=== PATIENT | male | born 1975 | race Caucasian/White ===

== ENCOUNTER 2016-11-28 13:35 | Emergency (ER) | payer MEDICARE ==
[~2016-11-28] VITALS: Ht 182.9 cm; Wt 86.0 kg
[~2016-11-28 13:35] MED LIST: CIPR-9 PO
[2016-11-28 13:37] VITALS: BP 120/76; PULSE 89; RESP 16; TEMP 98.4; O2SAT 98
--- NOTE | 2016-11-28 13:41 | PD ---
Physical Exam Time Seen by Provider: 13:39 Narrative 49-year-old male with complaint of front upper tooth pain 5 days. Took an old prescription of Bactrim for 2 days, 3 times a day, with no change in symptoms. Denies fever, vomiting. Patient seen in triage. Vital signs reviewed. Patient taken to medical bed. Data Data Last Documented VS Vital Signs Date Time Temp Pulse Resp B/P (MAP) Pulse Ox O2 Delivery O2 Flow Rate FiO2 11/28/16 13:37 98.4 89 16 120/76 (91) 98 MDM Supervised Visit with KLARISSA: Malathi Rodriguez Nov 28, 2016 13:41
[2016-11-28] MEDS ORDERED: CLIN150 PO (14:29)
--- NOTE | 2016-11-28 14:36 | PD ---
HPI Chief Complaint: ENT Complaint Time Seen by Provider: 14:26 Travel History International Travel<30 days: No Contact w/Intl Traveler<30days: No Traveled to known affect area: No History of Present Illness HPI 41-year-old male resents emergency department with ongoing and worsening dental pain and swelling to the anterior upper teeth including #7 #8, #9, #10 and #11 teeth. These are have been bothersome for the past week. Patient tried taking some Bactrim that he had left over from a previous prescription without improvement. He is not really requesting for pain just something different for the infection. He states the pain is about a 2 out of 10. He states penicillin bothers his stomach. He has history of MRSA, as well as multiple allergies including fish containing products, BUN on, haloperidol, iodine, sodium iodide, and penicillin is listed but he states it just upsets his stomach. PFSH Past Medical History Arthritis: Yes Blood Disorders: No Bipolar Disorder: Yes Anxiety: Yes Depression: Yes Cancer: No Cardiovascular Problems: No Diabetes: No Diminished Hearing: No Diverticulitis: Yes Endocrine: No Gastrointestinal Disorders: Yes Genitourinary: No Headaches: Yes Immune Disorder: No Musculoskeletal: No Neurologic: Yes Psychiatric: Yes Reproductive: No Respiratory: No Immunizations Current: Yes Schizophrenia: Yes Seizures: Yes (WHEN I WAS A CHILD) Thyroid Disease: No ?: Not Past Surgical History Abdominal Surgery: No Ear Surgery: No Endocrine Surgery: No Eye Surgery: No Genitourinary Surgery: No Gynecologic Surgery: No Oral Surgery: No Pacemaker: No Thoracic Surgery: No Other Surgery: No Family History Family Myocardial Infarction: Yes (PATERNAL & MATERNAL GRANDFATHERS) Social History Alcohol Use: No Tobacco Use: Yes (1 PPD) Substance Use: Yes Allergies-Medications (Allergen,Severity, Reaction): Coded Allergies: Fish Containing Products (Unverified Allergy, Severe, 10/17/16) haloperidol (Unverified Allergy, Severe, SOB, 10/17/16) iodine (Unverified Allergy, Severe, SOB, 10/17/16) penicillin G (Unverified Allergy, Severe, RAISED RASH, 10/17/16) potassium iodide (Unverified Allergy, Severe, SOB, 10/17/16) povidone-iodine (Unverified Allergy, Severe, SOB, 10/17/16) sodium iodide (Unverified Allergy, Severe, SOB, 10/17/16) sodium iodide (Unverified Allergy, Severe, SOB, 10/17/16) bee venom protein (honey bee) (Verified Allergy, Unknown, 11/28/16) *MDRO Multi-Drug Resistant Organism (Verified Adverse Reaction, Unknown, 02/09/16) MRSA (knee wound) 10/2014 Reported Meds & Prescriptions Reported Meds & Active Scripts Active Cleocin (Clindamycin HCl) 150 Mg Cap 300 Mg PO Q6H 10 Days Review of Systems Except as stated in HPI: all other systems reviewed are Neg General / Constitutional: No: Fever Eyes: No: Visual changes HENT: Positive: Dental Difficulties, No: Headaches, Vertigo, Lightheadedness, Sore Throat, Rhinitis, Rhinorrhea, Congestion, Nosebleed, Neck Stiffness, Neck Pain, Gingival Bleeding, Ear Discharge, Earache Cardiovascular: No: Chest Pain or Discomfort Respiratory: No: Shortness of Breath Gastrointestinal: No: Abdominal Pain Genitourinary: No: Dysuria Musculoskeletal: No: Pain Skin: No Rash Neurologic: No: Weakness Psychiatric: No: Depression Endocrine: No: Polydipsia Hematologic/Lymphatic: No: Easy Bruising Physical Exam Narrative GENERAL: Patient appears in no acute distress SKIN: Warm and dry. Normal color. Normal turgor. HEAD: Atraumatic. Normocephalic. Mild swelling over the upper lip centrally. EYES: Pupils equal and round. No scleral icterus. No injection or drainage. ENT: No nasal bleeding or discharge. Mucous membranes pink and moist. Patient has very poor dental health with multiple broken teeth and caries noted. Most of deep involvement on the upper anterior aspect of the upper jaw. Pharynx is clear. Airway is patent. No significant lymphadenopathy. NECK: Trachea midline. Supple and nontender. CARDIOVASCULAR: Regular rate and rhythm. RESPIRATORY: No accessory muscle use. Clear to auscultation. Breath sounds equal bilaterally. MUSCULOSKELETAL: Extremities without clubbing, cyanosis, or edema. No obvious deformities. NEUROLOGICAL: Awake and alert. No obvious cranial nerve deficits. Motor grossly within normal limits. Five out of 5 muscle strength in the arms and legs. Normal speech. PSYCHIATRIC: Appropriate mood and affect; insight and judgment normal. Data Data Last Documented VS Vital Signs Date Time Temp Pulse Resp B/P (MAP) Pulse Ox O2 Delivery O2 Flow Rate FiO2 11/28/16 13:37 98.4 89 16 120/76 (30) 98 [facility] Medical Decision Making Medical Screen Exam Complete: Yes Emergency Medical Condition: Yes Medical Record Reviewed: Yes Differential Diagnosis Dental decay. Dental caries. Dental abscess. Periodontitis. Narrative Course Patient is treated with Cleocin 150 mg 2 tabs every 6 hours for 10 days. Patient is recommended to follow-up with dental resources as soon as possible. Diagnosis Primary Impression: Dental abscess Patient Instructions: Dental Abscess (ED), General Instructions Additional Instructions: Patient is treated with Cleocin 150 mg 2 tabs every 6 hours for 10 days. Patient is recommended to follow-up with dental resources as soon as possible. Med/Other Pt SpecificInfo: Prescription(s) given Scripts Clindamycin (Cleocin) 150 Mg Cap 300 MG PO Q6H for Infection for 10 Days, #80 CAP 0 Refills Prov: Jaime Mills MD 11/28/16 Disposition: 01 DISCHARGE HOME Condition: Stable Derek Paz Nov 28, 2016 14:36
== END 2016-11-28 14:43 | disposition home or self-care (01) ==
LOC: NEPK 13:35
DX: K04.7 Periapical abscess without sinus (principal); M19.90 Unspecified osteoarthritis, unspecified site; Z86.14 Personal history of Methicillin resistant Staphylococcus aureus infection
CPT/HCPCS: 99283

== ENCOUNTER 2017-08-07 14:25 | Emergency (ER) | payer MEDICARE ==
[~2017-08-07 14:25] MED LIST changes: -CIPR-9 PO; +CLIN150 PO
[2017-08-07 14:27] VITALS: BP 129/64; PULSE 75; RESP 16; TEMP 97.7; O2SAT 97
[2017-08-07] MEDS ORDERED: SODIUM CHLORIDE 0.9% FLUSH 10 ML FLUSH IVF PRN (15:00)
[2017-08-07] MEDS ORDERED: MECLIZINE HCL 25 MG TAB PO ONE (15:00)
[2017-08-07 15:05] VITALS: O2SAT 99
[2017-08-07 15:06] LABS: AUTOMATED NEUTROPHIL # 3.5 TH/MM3 (1.8-7.7); BASOPHIL % 0.6 % (0.0-2.0); EOSINOPHIL # 0.1 TH/MM3 (0-0.4); EOSINOPHIL % 1.5 % (0.0-4.0); HEMATOCRIT 38.7 % (39.0-51.0); HEMOGLOBIN 13.4 GM/DL (13.0-17.0); LYMPH % 31.3 % (9.0-44.0); LYMPHOCYTE # 1.9 TH/MM3 (1.0-4.8); MEAN CORPUSCULAR HEMOGLOBIN 30.7 PG (27.0-34.0); MEAN CORPUSCULAR HGB CONC 34.5 % (32.0-36.0); MONO % 7.8 % (0.0-8.0); MONOCYTE # 0.5 TH/MM3 (0-0.9); NEUT % 58.8 % (16.0-70.0); PLATELET COUNT 398 TH/MM3 (150-450); RED BLOOD COUNT 4.35 MIL/MM3 (4.50-5.90); RED CELL DISTRIBUTION WIDTH 13.1 % (11.6-17.2); WHITE BLOOD COUNT 5.9 TH/MM3 (4.0-11.0)
--- NOTE | 2017-08-07 15:25 | PD ---
HPI Chief Complaint: Dizziness Time Seen by Provider: 14:51 Travel History International Travel<30 days: No Contact w/Intl Traveler<30days: No Traveled to known affect area: No History of Present Illness HPI Patient is a 42-year-old male presenting to the emergency department for evaluation of dizziness, fatigue, nasal congestion, ear pressure. Patient states his symptoms started 1-2 weeks ago. He states he feels dizzy occasionally. He reports that the fatigue comes on and he has to lay his head down. He denies any shortness of breath, chest pain, fever, chills, abdominal pain, nausea, vomiting. Patient reports a history of "ear problems". Symptom onset was gradual, symptoms are mild to moderate nature. There are no alleviating factors, patient has not tried any [id number] medications. He denies any significant past medical history. PFSH Past Medical History Arthritis: Yes Bipolar Disorder: Yes Anxiety: Yes Depression: Yes Diverticulitis: Yes Headaches: Yes Neurologic: Yes Psychiatric: Yes Immunizations Current: Yes Schizophrenia: Yes Seizures: Yes (WHEN I WAS A CHILD) Tetanus Vaccination: > 5 Years Family History Family Myocardial Infarction: Yes (PATERNAL & MATERNAL GRANDFATHERS) Social History Alcohol Use: No Tobacco Use: Yes (1 PPD) Substance Use: Yes (DENIES NOW) Allergies-Medications (Allergen,Severity, Reaction): Coded Allergies: Fish Containing Products (Unverified Allergy, Severe, 08/07/17) haloperidol (Unverified Allergy, Severe, SOB, 08/07/17) iodine (Unverified Allergy, Severe, SOB, 08/07/17) penicillin G (Unverified Allergy, Severe, RAISED RASH, 08/07/17) potassium iodide (Unverified Allergy, Severe, SOB, 08/07/17) povidone-iodine (Unverified Allergy, Severe, SOB, 08/07/17) sodium iodide (Unverified Allergy, Severe, SOB, 08/07/17) sodium iodide (Unverified Allergy, Severe, SOB, 08/07/17) bee venom protein (honey bee) (Verified Allergy, Unknown, 08/07/17) *MDRO Multi-Drug Resistant Organism (Verified Adverse Reaction, Unknown, ) MRSA (knee wound) 10/2014 Reported Meds & Prescriptions Reported Meds & Active Scripts Active No Active Prescriptions or Reported Medications Review of Systems Except as stated in HPI: all other systems reviewed are Neg General / Constitutional: Positive: Other (Fatigue), No: Fever Eyes: No: Blurred Vision HENT: Positive: Vertigo, Congestion, Earache, No: Headaches Cardiovascular: No: Chest Pain or Discomfort Respiratory: No: Shortness of Breath Gastrointestinal: No: Nausea, Vomiting, Abdominal Pain Genitourinary: No: Dysuria Neurologic: Positive: Dizziness, No: Focal Abnormalities, Change in Mentation, Sensory Disturbance Physical Exam Narrative GENERAL: Well-developed, well-nourished, alert male. Presenting in no acute distress. SKIN: Warm and dry. HEAD: Atraumatic. Normocephalic. EYES: Pupils equal and round. No scleral icterus. No injection or drainage. ENT: No nasal bleeding or discharge. Mucous membranes pink and moist. Bilateral tympanic membranes without erythema, dullness or bulging. NECK: Trachea midline. No JVD. CARDIOVASCULAR: Regular rate and rhythm. RESPIRATORY: No accessory muscle use. Clear to auscultation. Breath sounds equal bilaterally. GASTROINTESTINAL: Abdomen soft, non-tender, nondistended. Hepatic and splenic margins not palpable. MUSCULOSKELETAL: Extremities without clubbing, cyanosis, or edema. No obvious deformities. NEUROLOGICAL: Awake and alert. No obvious cranial nerve deficits. Motor grossly within normal limits. Five out of 5 muscle strength in the arms and legs. Normal speech. PSYCHIATRIC: Appropriate mood and affect; insight and judgment normal. Data Data Last Documented VS Vital Signs Date Time Temp Pulse Resp B/P (MAP) Pulse Ox O2 Delivery O2 Flow Rate FiO2 08/07/17 15:31 72 119/67 (84) 82 142/68 (92) 08/07/17 15:05 99 08/07/17 14:27 97.7 16 Orders Orders Complete Blood Count With Diff (08/07/17 14:51) Comprehensive Metabolic Panel (08/07/17 14:51) Magnesium (Mg) (08/07/17 14:51) Ckmb (Isoenzyme) Profile (08/07/17 14:51) Troponin I (08/07/17 14:51) Ecg Monitoring (08/07/17 14:51) Iv Access Insert/Monitor (08/07/17 14:51) Oximetry (08/07/17 14:51) Meclizine (Antivert) (08/07/17 15:00) Sodium Chloride 0.9% Flush (Ns Flush) (08/07/17 15:00) Orthostatic Vital Signs (08/07/17 14:51) CKMB (08/07/17 15:00) CKMB% (08/07/17 15:00) Sodium Chlor 0.9% 1000 Ml Inj (Ns 1000 M (08/07/17 16:00) Labs Laboratory Tests Test 08/07/17 15:00 White Blood Count 5.9 TH/MM3 Red Blood Count 4.35 MIL/MM3 Hemoglobin 13.4 GM/DL Hematocrit 38.7 % Mean Corpuscular Volume 89.0 FL Mean Corpuscular Hemoglobin 30.7 PG Mean Corpuscular Hemoglobin Concent 34.5 % Red Cell Distribution Width 13.1 % Platelet Count 398 TH/MM3 Mean Platelet Volume 7.0 FL Neutrophils (%) (Auto) 58.8 % Lymphocytes (%) (Auto) 31.3 % Monocytes (%) (Auto) 7.8 % Eosinophils (%) (Auto) 1.5 % Basophils (%) (Auto) 0.6 % Neutrophils # (Auto) 3.5 TH/MM3 Lymphocytes # (Auto) 1.9 TH/MM3 Monocytes # (Auto) 0.5 TH/MM3 Eosinophils # (Auto) 0.1 TH/MM3 Basophils # (Auto) 0.0 TH/MM3 CBC Comment DIFF FINAL Differential Comment Blood Urea Nitrogen 26 MG/DL Creatinine 0.92 MG/DL Random Glucose 119 MG/DL Total Protein 6.4 GM/DL Albumin 3.4 GM/DL Calcium Level 8.4 MG/DL Magnesium Level 2.1 MG/DL Alkaline Phosphatase 84 U/L Aspartate Amino Transf (AST/SGOT) 18 U/L Alanine Aminotransferase (ALT/SGPT) 52 U/L Total Bilirubin 0.2 MG/DL Sodium Level 142 MEQ/L Potassium Level 3.8 MEQ/L Chloride Level 110 MEQ/L Carbon Dioxide Level 22.3 MEQ/L Anion Gap 10 MEQ/L Estimat Glomerular Filtration Rate 90 ML/MIN Total Creatine Kinase 140 U/L Creatine Kinase MB 2.2 NG/ML Troponin I LESS THAN 0.02 NG/ML MDM Medical Decision Making Medical Screen Exam Complete: Yes Emergency Medical Condition: Yes Interpretation(s) Laboratory Tests Test 08/07/17 15:00 White Blood Count 5.9 TH/MM3 Red Blood Count 4.35 MIL/MM3 Hemoglobin 13.4 GM/DL Hematocrit 38.7 % Mean Corpuscular Volume 89.0 FL Mean Corpuscular Hemoglobin 30.7 PG Mean Corpuscular Hemoglobin Concent 34.5 % Red Cell Distribution Width 13.1 % Platelet Count 398 TH/MM3 Mean Platelet Volume 7.0 FL Neutrophils (%) (Auto) 58.8 % Lymphocytes (%) (Auto) 31.3 % Monocytes (%) (Auto) 7.8 % Eosinophils (%) (Auto) 1.5 % Basophils (%) (Auto) 0.6 % Neutrophils # (Auto) 3.5 TH/MM3 Lymphocytes # (Auto) 1.9 TH/MM3 Monocytes # (Auto) 0.5 TH/MM3 Eosinophils # (Auto) 0.1 TH/MM3 Basophils # (Auto) 0.0 TH/MM3 CBC Comment DIFF FINAL Differential Comment Blood Urea Nitrogen 26 MG/DL Creatinine 0.92 MG/DL Random Glucose 119 MG/DL Total Protein 6.4 GM/DL Albumin 3.4 GM/DL Calcium Level 8.4 MG/DL Magnesium Level 2.1 MG/DL Alkaline Phosphatase 84 U/L Aspartate Amino Transf (AST/SGOT) 18 U/L Alanine Aminotransferase (ALT/SGPT) 52 U/L Total Bilirubin 0.2 MG/DL Sodium Level 142 MEQ/L Potassium Level 3.8 MEQ/L Chloride Level 110 MEQ/L Carbon Dioxide Level 22.3 MEQ/L Anion Gap 10 MEQ/L Estimat Glomerular Filtration Rate 90 ML/MIN Total Creatine Kinase 140 U/L Creatine Kinase MB 2.2 NG/ML Troponin I LESS THAN 0.02 NG/ML Vital Signs Date Time Temp Pulse Resp B/P (MAP) Pulse Ox O2 Delivery O2 Flow Rate FiO2 08/07/17 15:05 99 08/07/17 14:27 97.7 75 16 129/64 (13) 97 Differential Diagnosis Vertigo versus otitis media versus otitis effusion versus allergic rhinitis versus sinusitis versus other Narrative Course Patient is a well-appearing 42-year-old male presenting for evaluation of fatigue, intermittent dizziness, nasal congestion. Patient's vital signs are stable, physical exam is essentially unremarkable. Patient's labs reviewed, no acute findings identified, his BUN was slightly elevated, he was given a liter of IV fluids. He was also given meclizine by mouth. Patient was reassured that there were no acute findings. He was encouraged to follow-up with his primary doctor at the [facility]. Patient will be given a prescription for amoxicillin as well as fluticasone nasal spray. Patient was advised to trial conservative symptom management as well. He verbalized understanding of instructions. Patient stable for discharge. Diagnosis Primary Impression: Sinusitis Qualified Codes: J32.9 - Chronic sinusitis, unspecified Referrals: [facility] Patient Instructions: General Instructions, Sinusitis (ED) Additional Instructions: Follow-up at the [facility] Take medications as directed Return to emergency department for any new or worsening symptoms Scripts Fluticasone Nasal [place] (Fluticasone Nasal [place]) 50 Mcg/Act Naspr 50 MCG EACH NARE BID for Allergy Management, #1 BOTTLE 0 Refills 50 mcg/spray Prov: Katelyn Schneider 08/07/17 Amoxicillin (Amoxicillin) 875 Mg Tab 875 MG PO BID for Infection for 10 Days, #20 TAB 0 Refills Prov: Katelyn Schneider 08/07/17 Disposition: 01 DISCHARGE HOME Condition: Stable Katelyn Schneider Aug 07, 2017 15:25
[2017-08-07 15:26] LABS: ALBUMIN 3.4 GM/DL (3.4-5.0); AST (GOT) 18 U/L (15-37); BICARBONATE 22.3 MEQ/L (21.0-32.0); BLOOD UREA NITROGEN 26 MG/DL (7-18); CALCIUM 8.4 MG/DL (8.5-10.1); CHLORIDE 110 MEQ/L (98-107); CREATININE 0.92 MG/DL (0.60-1.30); GLOMERULAR FILTRATION RATE 90 ML/MIN (>89); GLUCOSE,RANDOM 119 MG/DL (74-106); MAGNESIUM 2.1 MG/DL (1.5-2.5); SODIUM (NA) 142 MEQ/L (136-145)
[2017-08-07 15:31] VITALS: BP_SYST 119; BP_SYST 142; BP_DIAS 67; BP_DIAS 68
[2017-08-07 15:32] LABS: ALKALINE PHOSPHATASE 84 U/L (45-117); ALT (GPT) 52 U/L (12-78); TOTAL BILIRUBIN ADULT 0.2 MG/DL (0.2-1.0); TOTAL PROTEIN 6.4 GM/DL (6.4-8.2); TROPONIN I LESS THAN 0.02 NG/ML (0.02-0.05)
[2017-08-07] MEDS ORDERED: SODIUM CHLOR 0.9% 1000 ML INJ 1,000 ML IV ONE (16:00)
[2017-08-07] MEDS ORDERED: AMOX875T PO (16:32)
[2017-08-07] MEDS ORDERED: FLUT50SP EACH NARE (16:32)
== END 2017-08-07 16:50 | disposition home or self-care (01) ==
LOC: NEPD 14:25
DX: J32.9 Chronic sinusitis, unspecified (principal); F20.9 Schizophrenia, unspecified; F31.9 Bipolar disorder, unspecified; F41.9 Anxiety disorder, unspecified; M19.90 Unspecified osteoarthritis, unspecified site; F17.200 Nicotine dependence, unspecified, uncomplicated; Z79.899 Other long term (current) drug therapy
CPT/HCPCS: 80053; 82550; 82552; 83735; 84484; 85025; 96360; 99284; J7030